=== PATIENT | female | born 1950 | race African-American/Black ===

== ENCOUNTER 2016-12-08 10:26 | Inpatient (IN) | payer OTHER, MEDICARE ==
[2016-12-11] MEDS ORDERED: ASPI-110 PO (12:47)
[2016-12-11] MEDS ORDERED: SPIR25TA PO (13:04)
[2016-12-11] MEDS ORDERED: LABE200T2 PO (13:04)
[2016-12-11] MEDS ORDERED: IRONTAB3 PO (13:04)
[2016-12-11] MEDS ORDERED: COZA50TA PO (13:04)
[2016-12-11] MEDS ORDERED: D 101000 PO (13:04)
[2016-12-11] MEDS ORDERED: PRAV40TA2 PO (13:04)
[2016-12-11] MEDS ORDERED: OMEP20TA PO (13:04)
[2016-12-15] VITALS (8 sets, daily range): BP systolic 142–161; BP diastolic 69–73; PULSE 72–81; RESP 14–18; TEMP 96.8–98.9; O2SAT 94–98
[2016-12-15] MEDS ORDERED: ceFAZolin 1,000 MG/NS 100 ML IV SCH ×2 (11:00)
[2016-12-15] MEDS ORDERED: POVIDONE IODINE 5% (ANTISEPSIS KIT) 4 APPLICATIONS EACH NARE PRN (11:00)
[2016-12-15] MEDS ORDERED: METOPROLOL TARTRATE 25 MG TAB PO PRN (11:00)
[2016-12-15] MEDS ORDERED: DEXT 5%-NACL 0.9% 1000 ML INJ 1,000 ML IV SCH (11:00)
[2016-12-15] MEDS ORDERED: SODIUM CHLORID 0.9% 500 ML IV PRN (11:00)
[2016-12-15] MEDS ORDERED: METRONIDAZOLE 500 MG/100 ML ISONTONIC SOLN IV SCH (11:00)
[2016-12-15] MEDS ORDERED: ALVIMOPAN 12 MG CAPSULE - On Call PO SCH (11:00)
[2016-12-15] MEDS ORDERED: INSULIN HUMAN REGULAR 1,000 UNITS/10 ML VIAL SQ PRN (11:00)
[2016-12-15] MEDS ORDERED: LACTATED RINGER'S 1000 ML IV PRN (11:00)
[2016-12-15] MEDS ORDERED: CHLORHEXIDINE GLUCONATE 2 % 1 PACK (2 CLOTHS) TOPICAL PRN (11:00)
[2016-12-15] MEDS ORDERED: PHENYLEPH/NS 1000 MCG/10 ML SYR IV ONE ×2 (12:00→12:03)
[2016-12-15] MEDS ORDERED: PROPOFOL 200 MG/20 ML AMP IV ONE (12:02)
[2016-12-15] MEDS ORDERED: LACTATED RINGER'S 1000 ML INJ 1,000 ML IV ONE (12:03)
[2016-12-15] MEDS ORDERED: ONDANSETRON HCL 4 MG/2 ML VIAL IV PUSH ONE (12:03)
[2016-12-15] MEDS ORDERED: ePHEDrine/NS 25 MG/5 ML SYR IV ONE (12:03)
--- NOTE | 2016-12-15 13:06 | PD.HP.UP ---
H&P Update Note The Pre-Admit History and Physical Examination regarding the above named patient was reviewed (including, but not limited to, vital signs, heart, lungs, co-morbid conditions), and upon re-examination it is noted that: the patient's condition has not significantly changed since the last examination. Omer Candelaria MD Dec 15, 2016 13:06
[2016-12-15] MEDS ORDERED: LIDOCAINE 2% JELLY 30 ML TUBE ONE (13:22)
[2016-12-15] MEDS ORDERED: SUGAMMADEX SODIUM 200 MG/2 ML VIAL IV PUSH ONE ×2 (15:24)
[2016-12-15] MEDS ORDERED: HYDROmorphone HCL PF 2 MG/ML VIAL ONE (15:24)
[2016-12-15] MEDS ORDERED: Post-op Orders (for Pharmacy) MISC XX ONE (15:45)
[2016-12-15] MEDS ORDERED: NALOXONE HCL 0.4 MG/ML AMP IV PRN (15:45)
[2016-12-15] MEDS ORDERED: ZOLPIDEM TARTRATE 5 MG TAB PO PRN (15:45)
[2016-12-15] MEDS ORDERED: ONDANSETRON HCL 4 MG/2 ML VIAL IV PRN (15:45)
[2016-12-15] MEDS ORDERED: SODIUM CHLORIDE 0.9% FLUSH 10 ML FLUSH IV FLUSH PRN (15:45)
[2016-12-15] MEDS ORDERED: BENZOCAINE 6 MG/MENTHOL 10 MG LOZENGE BUCCAL PRN (15:45)
[2016-12-15] MEDS ORDERED: POTASSIUM CHLOR 40 MEQ PREMIX 100 ML IV PRN (15:45)
[2016-12-15] MEDS ORDERED: ACETAMINOPHEN/HYDROcodone 325 MG/5 MG TAB PO PRN (15:45)
[2016-12-15] MEDS ORDERED: POTASSIUM CHLOR 20 MEQ PREMIX 100 ML IV PRN (15:45)
--- NOTE | 2016-12-15 15:52 | PD.OP ---
Operative Report Date of Surgery: Dec 15, 2016 Preoperative Diagnosis: Sigmoid colon polyp Postoperative Diagnosis: Same Procedure: Sigmoid colectomy,LAR Anesthesia: Gen E-T Surgeon: Omer Candelaria Master Carpenter(s): Omer Banks MD Dec 15, 2016 15:52
[2016-12-15] MEDS ORDERED: MIDAZOLAM HCL 2 MG/2 ML VIAL ONE (16:06)
[2016-12-15] MEDS ORDERED: fentaNYL CITRATE 250 MCG/5 ML AMP ONE (16:06)
[2016-12-15] MEDS ORDERED: *morphine SULFATE 8 MG/ML PERIprocedure ONLY ONE ×3 (16:09→16:40)
[2016-12-15] MEDS: D5-LR + KCL 20 MEQ INJ 1,000 ML IV SCH (16:19)
[2016-12-15 16:20] LABS: AUTOMATED NEUTROPHIL # 16.2 TH/MM3 (1.8-7.7); BASOPHIL # 0.1 TH/MM3 (0-0.2); BASOPHIL % 0.3 % (0.0-2.0); EOSINOPHIL % 0.2 % (0.0-4.0); HEMATOCRIT 37.7 % (35.0-46.0); HEMO FLAGS DIFF FINAL; LYMPH % 15.6 % (9.0-44.0); LYMPHOCYTE # 3.3 TH/MM3 (1.0-4.8); MEAN CELL VOLUME 67.1 FL (80.0-100.0); MEAN CORPUSCULAR HEMOGLOBIN 20.7 PG (27.0-34.0); MEAN CORPUSCULAR HGB CONC 30.9 % (32.0-36.0); MONO % 6.2 % (0.0-8.0); NEUT % 77.7 % (16.0-70.0); PLATELET COUNT 395 TH/MM3 (150-450); RED BLOOD COUNT 5.62 MIL/MM3 (4.00-5.30); RED CELL DISTRIBUTION WIDTH 15.4 % (11.6-17.2); WHITE BLOOD COUNT 20.9 TH/MM3 (4.0-11.0)
[2016-12-15 16:41] LABS: BICARBONATE 26.4 MEQ/L (21.0-32.0); POTASSIUM 4.1 MEQ/L (3.5-5.1)
[2016-12-15] MEDS: MORPHINE SULFATE 30 MG/30 ML PCA IV SCH (16:44)
[2016-12-15] MEDS: ceFAZolin 2 GM PREMIX 50 ML IV SCH (17:00)
[2016-12-15] MEDS ORDERED: DO NOT ADM ANY ANTICOAGULANT DRUGS PRN (17:45)
[2016-12-15] MEDS: FUROSEMIDE 20 MG/2 ML VIAL IV SCH (19:51)
[2016-12-15] MEDS: KETOROLAC TROMETHAMINE 30 MG/ML (IVP) VIAL IVP PRN (19:51)
[2016-12-15] MEDS: metroNIDAZOLE 500 MG INJ 100 ML IV SCH (19:52)
[2016-12-15] MEDS: LABETALOL HCL 200 MG TAB PO SCH (20:03)
[2016-12-15] MEDS: SODIUM CHLORIDE 0.9% FLUSH 10 ML FLUSH IV FLUSH SCH (20:03)
[2016-12-16] VITALS (13 sets, daily range): BP systolic 123–153; BP diastolic 58–72; PULSE 60–79; RESP 16–20; TEMP 97.9–98.7; O2SAT 95–96
[2016-12-16] MEDS: ceFAZolin 2 GM PREMIX 50 ML IV SCH ×2 (01:00→08:59)
[2016-12-16] MEDS: KETOROLAC TROMETHAMINE 30 MG/ML (IVP) VIAL IVP PRN ×2 (03:14→17:47)
[2016-12-16] MEDS: metroNIDAZOLE 500 MG INJ 100 ML IV SCH ×2 (03:15→10:23)
[2016-12-16 06:00] LABS: AUTOMATED NEUTROPHIL # 12.2 TH/MM3 (1.8-7.7); BASOPHIL % 0.1 % (0.0-2.0); HEMATOCRIT 36.1 % (35.0-46.0); HEMO FLAGS DIFF FINAL; LYMPH % 7.7 % (9.0-44.0); LYMPHOCYTE # 1.1 TH/MM3 (1.0-4.8); MEAN CELL VOLUME 66.1 FL (80.0-100.0); MEAN CORPUSCULAR HEMOGLOBIN 21.1 PG (27.0-34.0); MONO % 5.6 % (0.0-8.0); NEUT % 86.6 % (16.0-70.0); PLATELET COUNT 352 TH/MM3 (150-450); RED BLOOD COUNT 5.46 MIL/MM3 (4.00-5.30); RED CELL DISTRIBUTION WIDTH 15.5 % (11.6-17.2); WHITE BLOOD COUNT 14.1 TH/MM3 (4.0-11.0)
[2016-12-16] MEDS: METOCLOPRAMIDE HCL 10 MG/2 ML VIAL IVS SCH ×5 (06:00→23:53)
[2016-12-16] MEDS: PCA - TOTAL MG MORPHINE DELIVERED PER SHIFT SCH ×3 (06:00→20:51)
[2016-12-16 06:28] LABS: BICARBONATE 27.3 MEQ/L (21.0-32.0); POTASSIUM 3.7 MEQ/L (3.5-5.1)
[2016-12-16] MEDS: PRAVASTATIN SOD 40 MG TAB PO SCH (08:57)
[2016-12-16] MEDS: ALVIMOPAN 12 MG CAPSULE - Post-op dosing PO SCH ×2 (08:58→20:50)
[2016-12-16] MEDS: SPIRONOLACTONE 25 MG TAB PO SCH ×2 (08:58→17:46)
[2016-12-16] MEDS: PANTOPRAZOLE SOD 40 MG DELAYED RELEASE TAB PO SCH (08:59)
[2016-12-16] MEDS: FUROSEMIDE 20 MG/2 ML VIAL IV SCH ×2 (08:59→20:50)
[2016-12-16] MEDS: ASPIRIN EC 81 MG TABEC PO SCH (08:59)
[2016-12-16] MEDS: LOSARTAN 50 MG TAB PO SCH (09:00)
[2016-12-16] MEDS: PANTOPRAZOLE SODIUM 40 MG VIAL IVP SCH (09:00)
[2016-12-16] MEDS: LABETALOL HCL 200 MG TAB PO SCH ×2 (09:00→20:50)
--- NOTE | 2016-12-16 09:08 | HHI.PR ---
Subjective Remarks No N or V. No pain. Objective Vital Signs Date Time Temp Pulse Resp B/P Pulse Ox O2 Delivery O2 Flow Rate FiO2 12/16/16 06:00 76 12/16/16 06:00 18 12/16/16 05:00 72 12/16/16 04:00 70 12/16/16 04:00 73 16 153/72 96 12/16/16 03:00 72 12/16/16 02:00 76 12/16/16 01:00 76 12/16/16 00:00 74 12/16/16 00:00 98.0 79 16 126/63 96 12/15/16 23:00 74 12/15/16 22:00 74 12/15/16 21:54 95 Nasal Cannula 3.00 12/15/16 21:00 74 12/15/16 20:00 75 12/15/16 20:00 97.9 76 16 154/73 96 12/15/16 19:00 80 12/15/16 18:00 81 12/15/16 18:00 96.8 81 14 161/69 94 12/15/16 17:25 85 16 96 Nasal Cannula 3 12/15/16 17:15 97.5 83 16 150/66 96 Nasal Cannula 3 12/15/16 17:00 80 16 155/69 96 Nasal Cannula 3 12/15/16 16:49 15 12/15/16 16:45 79 15 151/68 95 Nasal Cannula 3 12/15/16 16:44 15 12/15/16 16:30 78 15 143/64 94 Nasal Cannula 3 12/15/16 16:23 15 12/15/16 16:15 80 15 146/63 94 Nasal Cannula 3 12/15/16 16:14 15 12/15/16 16:00 88 16 141/78 99 Nasal Cannula 4 12/15/16 15:55 97.7 90 20 134/80 98 Nasal Cannula 4 12/15/16 11:13 98.9 72 18 142/70 98 I/O 12/15/16 12/15/16 12/15/16 12/16/16 12/16/16 12/16/16 07:00 15:00 23:00 07:00 15:00 23:00 Intake Total 1600 ml 1800 ml Output Total 360 ml 2600 ml Balance 1240 ml -800 ml Intake Oral 0 ml IV Total 300 ml 1800 ml Other 1300 ml Output Urine Total 200 ml 2500 ml Drainage Total 60 ml 100 ml Estimated Blood Loss 100 ml # Bowel Movements 0 Result Diagram: 12/16/1643012/16/16430 Objective Remarks VS-S Abd: soft,flat,non tender Assessment and Plan Assessment and Plan Stable POD#1 OOB,Transfer Omer Candelaria MD Dec 16, 2016 09:08
[2016-12-16] MEDS: MORPHINE SULFATE 30 MG/30 ML PCA IV SCH (12:58)
--- NOTE | 2016-12-16 13:12 | MP ---
cc: CESAR CANDELARIA M.D. DATE OF SURGERY 12/15/2016 PREOPERATIVE DIAGNOSIS Sigmoid colon polyp. POSTOPERATIVE DIAGNOSIS Sigmoid colon polyp. PROCEDURE Sigmoid colectomy, low anterior resection. ANESTHESIA General endotracheal SURGEON Dr. Candelaria FINANCIAL SPECIALIST Dr. Chen ESTIMATED BLOOD LOSS 50 cc OPERATING TIME One hour and 40 minutes OPERATIVE FINDINGS This patient was referred to me with a polyp in the sigmoid colon. It had been previously tattooed and it had been seen several years ago and was partially removed. For some reason, the patient did not return for followup and eventually went to another auto body painter who identify a lesion. She came to me and discussion was entertained regarding sigmoid colectomy. At surgery, exploration of the abdominal cavity revealed that she had dense adhesions in the pelvis to her vaginal cuff region which was stuck densely to the lower rectum as well. Small bowel was stuck in the pelvis as was sigmoid colon. She also had adhesions to the anterior abdominal wall to her previous midline incision consisting of omentum and bowel. The tattoo jose was seen easily and the polyp was easily palpated at about 30 cm and the sigmoid colectomy was done with a colorectal anastomosis using Ethicon-29 EEA stapling device. The remainder of the exploration of the abdomen was normal including the liver, the gallbladder, the stomach, the small bowel and the remainder of the colon. OPERATIVE TECHNIQUE The patient was placed on table in supine position. After adequate general endotracheal anesthesia, the legs were placed in the perineal lithotomy position. The abdomen and perineum were prepped and draped in the usual manner. A transverse infraumbilical skin incision was made and carried down through subcutaneous tissue and rectus muscles and the peritoneal cavity was entered with above-mentioned findings. Our attention was turned to the adhesions along the anterior abdominal wall including the omentum to the anterior abdominal wall and this was taken down as was the colon and small bowel. The adhesions in the right lower quadrant in the pelvis were dissected out of the pelvis with electrocautery. Once all the adhesions were raised up, the rectum was identified and the vaginal cuff was stuck to the anterior rectal wall and this was mobilized fairly easily with electrocautery. Next, the full sigmoid and descending colon was mobilized along its peritoneal reflection. The splenic flexure was not mobilized. The superior hemorrhoidal vessels were doubly clamped, cut and doubly ligated with 0 Vicryl ligatures and the retrorectal space was entered and the rectum was mobilized posteriorly. The lateral pelvic peritoneum was incised bilaterally and then the mesorectum was chosen at the rectosigmoid junction and the mesorectum was clamped, cut and ligated and the upper rectum was cleared. The pursestring stapling device was placed and then the rectum was divided. Next, our attention was turned to the sigmoid colon. A point of division was chosen and this was comfortably above the lesion. The sigmoid mesentery remainder was clamped, cut and ligated and the sigmoid colon was cleared and pursestring stapling device was applied and the sigmoid colon was divided. The anvil of the 29 EEA was inserted into the sigmoid colon and the pursestring was tied. Once this was done, Dr. Chen went below and placed the EEA instrument transanally and the distal pursestring was tied and the instruments connected, closed and fired creating the anastomosis. There was no tension on the anastomosis and the blood supply was excellent. The pelvis was irrigated thoroughly with saline solution using approximately three liters eventually to fully irrigate the pelvis. Dr. Chen did a proctosigmoidoscopy examination with air insufflation into the rectum with saline solution in the pelvis and no air leaks were identified. Next, the small bowel was inspected closely to make sure there were no serosal tears or enterotomies and none were found and the small bowel was then replaced in the abdominal cavity in an cloth bleaching supervisor manner and the abdominal cavity was closed in layers using a double-stranded one PDS for the posterior rectus sheath. The rectus muscle layer was irrigated thoroughly with saline solution, aspirated dry and then the anterior rectus sheath was closed with a double-stranded #1 PDS as well. The subcutaneous tissue was irrigated thoroughly with saline solution, aspirated dry and then the skin was closed with running 3-0 Vicryl subcuticular suture. It should be mentioned that a #10 flat Lamin drain was placed posterior to the rectal mobilization and brought out through a separate stab wound in the right lower quadrant. Sponge, needle and instrument counts were reported as correct. The operating time was one hour and 40 minutes. The patient tolerated the procedure well and left the operating room in good condition. MD WERO Pradhan/KADEN /6:14 PM /1:07 PM
[2016-12-16] MEDS: D5-LR + KCL 20 MEQ INJ 1,000 ML IV SCH ×2 (20:48→23:42)
[2016-12-16] MEDS: SODIUM CHLORIDE 0.9% FLUSH 10 ML FLUSH IV FLUSH SCH (20:50)
[2016-12-16] MEDS ORDERED: ALVIMOPAN 12 MG CAPSULE PO SCH (21:00)
[2016-12-17] VITALS: BP 124/61; PULSE 62; RESP 17; TEMP 97.8; O2SAT 95
[2016-12-17 04:00] VITALS: BP 131/61; PULSE 74; RESP 17; TEMP 99.3; O2SAT 95
[2016-12-17] MEDS: METOCLOPRAMIDE HCL 10 MG/2 ML VIAL IVS SCH ×4 (05:12→22:39)
[2016-12-17] MEDS: D5-LR + KCL 20 MEQ INJ 1,000 ML IV SCH ×2 (05:12→22:24)
[2016-12-17] MEDS: PCA - TOTAL MG MORPHINE DELIVERED PER SHIFT SCH (05:14)
[2016-12-17 05:22] LABS: AUTOMATED NEUTROPHIL # 8.1 TH/MM3 (1.8-7.7); BASOPHIL % 0.3 % (0.0-2.0); EOSINOPHIL % 0.3 % (0.0-4.0); HEMO FLAGS DIFF FINAL; LYMPH % 23.6 % (9.0-44.0); LYMPHOCYTE # 2.9 TH/MM3 (1.0-4.8); MEAN CELL VOLUME 67.1 FL (80.0-100.0); MEAN CORPUSCULAR HEMOGLOBIN 20.5 PG (27.0-34.0); MEAN CORPUSCULAR HGB CONC 30.6 % (32.0-36.0); MONO % 8.8 % (0.0-8.0); PLATELET COUNT 316 TH/MM3 (150-450); RED BLOOD COUNT 5.21 MIL/MM3 (4.00-5.30); RED CELL DISTRIBUTION WIDTH 15.1 % (11.6-17.2); WHITE BLOOD COUNT 12.2 TH/MM3 (4.0-11.0)
[2016-12-17 05:42] LABS: BICARBONATE 31.5 MEQ/L (21.0-32.0); POTASSIUM 3.8 MEQ/L (3.5-5.1)
[2016-12-17 08:00] VITALS: BP 144/71; PULSE 76; RESP 18; TEMP 98.4; O2SAT 95
[2016-12-17] MEDS: PANTOPRAZOLE SODIUM 40 MG VIAL IVP SCH (09:00)
[2016-12-17] MEDS: PRAVASTATIN SOD 40 MG TAB PO SCH (09:00)
[2016-12-17] MEDS: LOSARTAN 50 MG TAB PO SCH (09:01)
[2016-12-17] MEDS: PANTOPRAZOLE SOD 40 MG DELAYED RELEASE TAB PO SCH (09:01)
[2016-12-17] MEDS: SPIRONOLACTONE 25 MG TAB PO SCH ×2 (09:01→17:15)
[2016-12-17] MEDS: ALVIMOPAN 12 MG CAPSULE - Post-op dosing PO SCH ×2 (09:01→22:23)
[2016-12-17] MEDS: ASPIRIN EC 81 MG TABEC PO SCH (09:01)
[2016-12-17] MEDS: LABETALOL HCL 200 MG TAB PO SCH ×2 (09:01→22:23)
[2016-12-17] MEDS: SODIUM CHLORIDE 0.9% FLUSH 10 ML FLUSH IV FLUSH SCH ×2 (09:02→22:23)
[2016-12-17] MEDS: FUROSEMIDE 20 MG/2 ML VIAL IV SCH ×2 (09:02→22:24)
[2016-12-17 12:00] VITALS: BP 129/70; PULSE 76; RESP 18; TEMP 98.4; O2SAT 95
--- NOTE | 2016-12-17 12:49 | HHI.PR ---
Subjective Remarks No N or V. No pain. She did not get FLD as ordered. Discussed with RNs. Objective Vital Signs Date Time Temp Pulse Resp B/P Pulse Ox O2 Delivery O2 Flow Rate FiO2 12/17/16 08:00 98.4 76 18 144/71 95 12/17/16 05:14 18 12/17/16 04:00 99.3 74 17 131/61 95 12/17/16 00:00 97.8 62 17 124/61 95 12/16/16 20:51 20 12/16/16 20:00 98.6 64 17 136/63 95 12/16/16 18:06 98.7 65 20 143/65 95 12/16/16 16:00 98.2 60 16 129/58 95 12/16/16 15:41 95 21 12/16/16 14:00 20 12/16/16 12:58 22 I/O 12/16/16 12/16/16 12/16/16 12/17/16 12/17/16 12/17/16 07:00 15:00 23:00 07:00 15:00 23:00 Intake Total 1800 ml 910 ml 240 ml Output Total 2600 ml 1040 ml 300 ml 900 ml Balance -800 ml -130 ml -60 ml -900 ml Intake Oral 0 ml 360 ml 240 ml IV Total 1800 ml 550 ml Output Urine Total 2500 ml 1000 ml 300 ml 900 ml Drainage Total 100 ml 40 ml # Bowel Movements 0 Result Diagram: 12/17/16 0426 12/17/16 0426 Objective Remarks VS-S Abd: soft,flat,non tender,wound clean Assessment and Plan Assessment and Plan Stable POD#2 OOB,FLD,ambulate in halls. 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
[2016-12-17] MEDS: ACETAMINOPHEN/HYDROcodone 325 MG/5 MG TAB PO PRN ×2 (14:38→22:26)
[2016-12-17 16:00] VITALS: BP 128/60; PULSE 78; RESP 18; TEMP 99.1; O2SAT 95
[2016-12-17 20:00] VITALS: BP 137/63; PULSE 69; RESP 19; TEMP 98.4; O2SAT 92
[2016-12-18] VITALS (7 sets, daily range): BP systolic 99–154; BP diastolic 51–72; PULSE 69–82; RESP 18–20; TEMP 97–99; O2SAT 92–96
[2016-12-18] MEDS: ACETAMINOPHEN/HYDROcodone 325 MG/5 MG TAB PO PRN ×5 (05:32→21:41)
[2016-12-18] MEDS: METOCLOPRAMIDE HCL 10 MG/2 ML VIAL IVS SCH ×3 (05:33→17:22)
[2016-12-18] MEDS: LOSARTAN 50 MG TAB PO SCH (07:59)
[2016-12-18] MEDS: PANTOPRAZOLE SOD 40 MG DELAYED RELEASE TAB PO SCH (07:59)
[2016-12-18] MEDS: ALVIMOPAN 12 MG CAPSULE - Post-op dosing PO SCH ×2 (07:59→21:41)
[2016-12-18] MEDS: FUROSEMIDE 20 MG/2 ML VIAL IV SCH (07:59)
[2016-12-18] MEDS: LABETALOL HCL 200 MG TAB PO SCH ×2 (07:59→21:42)
[2016-12-18] MEDS: ASPIRIN EC 81 MG TABEC PO SCH (07:59)
[2016-12-18] MEDS: SPIRONOLACTONE 25 MG TAB PO SCH ×2 (08:00→17:22)
[2016-12-18] MEDS: PRAVASTATIN SOD 40 MG TAB PO SCH (08:00)
[2016-12-18] MEDS: PANTOPRAZOLE SODIUM 40 MG VIAL IVP SCH (08:00)
[2016-12-18] MEDS: SODIUM CHLORIDE 0.9% FLUSH 10 ML FLUSH IV FLUSH SCH ×2 (08:01→21:00)
[2016-12-18] MEDS: D5-LR + KCL 20 MEQ INJ 1,000 ML IV SCH ×2 (10:22→12:16)
--- NOTE | 2016-12-18 16:34 | HHI.PR ---
Subjective Remarks No N or V. No pain. Gloria PO. Flatus,no stool. Objective Vital Signs Date Time Temp Pulse Resp B/P Pulse Ox O2 Delivery O2 Flow Rate FiO2 12/18/16 16:29 98.2 77 18 136/72 96 12/18/16 12:00 98.7 69 20 115/59 95 12/18/16 08:04 99.0 82 18 140/67 95 12/18/16 06:36 18 12/18/16 04:00 98.2 76 18 148/72 92 12/18/16 00:00 99.0 71 18 99/51 92 12/17/16 20:00 98.4 69 19 137/63 92 I/O 12/17/16 12/17/16 12/17/16 12/18/16 12/18/16 12/18/16 07:00 15:00 23:00 07:00 15:00 23:00 Intake Total 240 ml 835 ml 660 ml 240 ml Output Total 300 ml 970 ml 80 ml Balance -60 ml -135 ml 660 ml 160 ml Intake Oral 240 ml 660 ml 240 ml IV Total 835 ml Output Urine Total 300 ml 900 ml Drainage Total 70 ml 80 ml # Voids 1 3 # Bowel Movements 0 0 Result Diagram: 12/17/16 0426 12/17/16425 Objective Remarks VS-S Abd: soft,flat,non tender,wound clean,drain removed Assessment and Plan Assessment and Plan Stable POD#3 OOB,Reg diet,ambulate in halls. Omer Candelaira MD Dec 18, 2016 16:34
[2016-12-19] MEDS: ACETAMINOPHEN/HYDROcodone 325 MG/5 MG TAB PO PRN ×2 (03:43→08:03)
[2016-12-19 08:00] VITALS: BP 162/74; PULSE 60; RESP 17; TEMP 97; O2SAT 95
[2016-12-19] MEDS: PRAVASTATIN SOD 40 MG TAB PO SCH (08:01)
[2016-12-19] MEDS: LOSARTAN 50 MG TAB PO SCH (08:01)
[2016-12-19] MEDS: SPIRONOLACTONE 25 MG TAB PO SCH (08:01)
[2016-12-19] MEDS: LABETALOL HCL 200 MG TAB PO SCH (08:01)
[2016-12-19] MEDS: PANTOPRAZOLE SOD 40 MG DELAYED RELEASE TAB PO SCH (08:01)
[2016-12-19] MEDS: PANTOPRAZOLE SODIUM 40 MG VIAL IVP SCH (08:02)
[2016-12-19] MEDS: SODIUM CHLORIDE 0.9% FLUSH 10 ML FLUSH IV FLUSH SCH (08:02)
[2016-12-19] MEDS: ASPIRIN EC 81 MG TABEC PO SCH (08:02)
[2016-12-19] MEDS: ALVIMOPAN 12 MG CAPSULE - Post-op dosing PO SCH (08:02)
[2016-12-19] MEDS ORDERED: HYDR-3516 PO (11:41)
--- NOTE | 2016-12-19 12:17 | HHI.PR ---
Subjective Remarks C/R Surg POD afebrile, VSS lili PO +BM Objective - Vital Signs Date Time Temp Pulse Resp B/P Pulse Ox O2 Delivery O2 Flow Rate FiO2 12/19/16 08:00 97.0 60 17 162/74 95 12/16/16 15:41 21 12/15/16 21:54 Nasal Cannula 3.00 Result Diagram: 12/17/16 0426 12/17/166 Objective Remarks PE alert Abd - soft, flat, non-tender, wound dry A/P Assessment and Plan Imp: reg diet dc IVF dc plans [place] Chen MD Dec 19, 2016 12:16
== END 2016-12-19 12:26 | disposition home or self-care (01) | DRG 331 ==
LOC: HSDI 12-15 10:30 → HCIS 12-15 17:24 → N07A 12-16 17:36
PROVIDERS: ADMIT Colon & Rectal Surgery; ATTEND Colon & Rectal Surgery
PROC: 0DNW0ZZ Release Peritoneum, Open Approach (ICD-10-PCS; 2016-12-15)
PROC: 0DJD8ZZ Inspection of Lower Intestinal Tract, Via Natural or Artificial Opening Endoscopic (ICD-10-PCS; 2016-12-15)
PROC: 0DBN0ZZ Excision of Sigmoid Colon, Open Approach (ICD-10-PCS; principal; 2016-12-15 13:22)
DX: D12.5 Benign neoplasm of sigmoid colon (principal); G62.9 Polyneuropathy, unspecified; I10 Essential (primary) hypertension; E78.5 Hyperlipidemia, unspecified; K21.9 Gastro-esophageal reflux disease without esophagitis; K66.0 Peritoneal adhesions (postprocedural) (postinfection); Z87.891 Personal history of nicotine dependence
CPT/HCPCS: 76937; 80048; 85025; 86850; 86900; 86901; 88307; 88309; 94150; J0690; J1170; J1885; J1940; J2250; J2270; J2370; J2405; J2765; J3010; J3480; J7120

== ENCOUNTER → 2016-12-11 | Outpatient (CLI) | payer OTHER ==
[~2016-12-11] MED LIST: 1-ME1LIQ PO; ASPI-110 PO; COZA50TA PO; D 101000 PO; HYDR-3516 PO; IRONTAB3 PO; LABE200T2 PO; OMEP20TA PO; OMEP20TA39 PO; PRAV40TA2 PO; SPIR25TA PO; VITATAB25 PO
[2016-12-11 13:45] LABS: AUTOMATED NEUTROPHIL # 3.6 TH/MM3 (1.8-7.7); BASOPHIL % 0.5 % (0.0-2.0); EOSINOPHIL # 0.2 TH/MM3 (0-0.4); EOSINOPHIL % 2.7 % (0.0-4.0); HEMATOCRIT 37.8 % (35.0-46.0); HEMO FLAGS DIFF FINAL; LYMPH % 36.7 % (9.0-44.0); LYMPHOCYTE # 2.5 TH/MM3 (1.0-4.8); MEAN CORPUSCULAR HEMOGLOBIN 20.4 PG (27.0-34.0); MEAN CORPUSCULAR HGB CONC 30.4 % (32.0-36.0); NEUT % 54.1 % (16.0-70.0); PLATELET COUNT 355 TH/MM3 (150-450); RED BLOOD COUNT 5.64 MIL/MM3 (4.00-5.30); RED CELL DISTRIBUTION WIDTH 15.2 % (11.6-17.2); WHITE BLOOD COUNT 6.7 TH/MM3 (4.0-11.0)
[2016-12-11 13:52] LABS: BLOOD, URINE NEG (NEG); COMMENT (UR) CULT NOT INDICATED; CULTURE IF INDICATED CULT NOT INDICATED; GLUCOSE,URINE NEG (NEG); KETONE, URINE NEG (NEG); MUCUS URINE FEW /lpf (OCC); NITRITE,URINE NEG (NEG); PH, URINE 5.5 (5.0-8.5); SQUAMOUS EPITHELIAL CELL URINE 1 /hpf (0-5); URINE COLOR YELLOW (YELLW/STRAW)
[2016-12-11 13:57] LABS: APTT (PATIENT) 28.5 SEC (24.3-30.1)
[2016-12-11 14:12] LABS: ALT (GPT) 27 U/L (10-53); ANION GAP 6 MEQ/L (5-15); AST (GOT) 18 U/L (15-37); BICARBONATE 31.3 MEQ/L (21.0-32.0); BLOOD UREA NITROGEN 11 MG/DL (7-18); CHLORIDE 104 MEQ/L (98-107); GLOMERULAR FILTRATION RATE 82 ML/MIN (>89); GLUCOSE,FASTING 86 MG/DL (74-99); POTASSIUM 3.8 MEQ/L (3.5-5.1); SODIUM (NA) 141 MEQ/L (136-145)
[2016-12-11 14:14] LABS: ALKALINE PHOSPHATASE 80 U/L (45-117); TOTAL BILIRUBIN ADULT 0.4 MG/DL (0.2-1.0)
--- NOTE | 2016-12-11 16:37 | RADRPT ---
EXAM DATE/TIME: 12/11/2016 13:09 [place] COMPARISON: No previous studies available for comparison. INDICATIONS : Pre-op colon ressection. Evaluate for pneumonia,pneumothorax, or other communicable disease. MEDICAL HISTORY : None. SURGICAL HISTORY : Tubal ligation. Hysterectomy. Appendectomy. Tonsilectomy. ENCOUNTER: Initial ACUITY: 1 day PAIN SCORE: 0/10 LOCATION: Bilateral chest FINDINGS: PA and lateral views of the chest demonstrate the lungs to be symmetrically aerated without evidence of mass, infiltrate or effusion. The cardiomediastinal contours are unremarkable. Osseous structure s are intact. CONCLUSION: No acute disease. Eliud Francis MD FACR on December 11, 2016 at 16:34 Board Certified Radiologist. This report was verified electronically.
--- NOTE | 2016-12-12 13:34 | EKG ---
Date Performed: 12/11/2016 Time Performed: 12:36:05 PTAGE: 66 years EKG: Sinus rhythm MODERATE VOLTAGE CRITERIA FOR LVH, CONSIDER NORMAL VARIANT NONSPECIFIC T-WAVE ABNORMALITY BORDERLINE ECG PREVIOUS TRACING : 11/08/2013 07.03 Compared to prior tracing no significant change DOCTOR: Shoaib Barrera Interpretating Date/Time 12/12/2016 13:31:36
== END ==
LOC: CPRE 12:01
PROVIDERS: ATTEND Colon & Rectal Surgery
DX: Z01.812 Encounter for preprocedural laboratory examination (principal); Z01.810 Encounter for preprocedural cardiovascular examination; Z01.811 Encounter for preprocedural respiratory examination; D12.5 Benign neoplasm of sigmoid colon; R94.31 Abnormal electrocardiogram [ECG] [EKG]
CPT/HCPCS: 36415; 71020; 80053; 81001; 82378; 85025; 85610; 85730; 93005